=== PATIENT | female | born 1965 | race Caucasian/White ===

== ENCOUNTER 2020-01-24 18:33 | Emergency (ER) | payer OTHER ==
[~2020-01-24] VITALS: Ht 160 cm; Wt 55.3 kg
[2020-01-24] MEDS ORDERED: CIPRO500 MG PO (19:59)
== END 2020-01-24 20:08 | disposition home or self-care (01) ==
LOC: ER 18:33
DX: S61.213A Laceration without foreign body of left middle finger without damage to nail, initial encounter (principal); S61.215A Laceration without foreign body of left ring finger without damage to nail, initial encounter; S61.211A Laceration without foreign body of left index finger without damage to nail, initial encounter; S61.217A Laceration without foreign body of left little finger without damage to nail, initial encounter; W22.8XXA Striking against or struck by other objects, initial encounter; Y93.A1 Activity, exercise machines primarily for cardiorespiratory conditioning; Y92.018 Other place in single-family (private) house as the place of occurrence of the external cause; Y99.8 Other external cause status